=== PATIENT | male | born 1985 | race Caucasian/White ===

== ENCOUNTER 2022-10-12 05:13 | Inpatient (IN) | payer OTHER ==
[~2022-10-12] VITALS: Ht 180.3 cm; Wt 87.5 kg
[2022-10-12] MEDS ORDERED: LORazepam 2 MG TABLET PO PRN (08:15)
[2022-10-12] MEDS ORDERED: HALOPERIDOL 5 MG TABLET PO PRN (08:15)
[2022-10-12 10:13] VITALS: BP 131/78
[2022-10-12] MEDS: NICOTINE 21 MG/24 HOUR PATCH TD SCH (10:18)
[2022-10-12] MEDS ORDERED: INFLUENZA VIRUS VACCINE QVS 2022-23 (6MO+)/PF 60 MCG/0.5 ML SYRINGE IM. ONE (11:15)
[2022-10-12] MEDS: METOPROLOL TARTRATE 50 MG TABLET PO SCH (16:18)
[2022-10-12 20:24] VITALS: BP 128/74
[2022-10-12] MEDS: ZOLPIDEM TARTRATE 10 MG TABLET PO PRN (22:02)
[2022-10-13] MEDS ORDERED: OMEPRAZOLE 20 MG CAPSULE PO PRN (05:45)
[2022-10-13] MEDS ORDERED: BENZOCAINE/MENTHOL LOZENGE PO PRN (05:45)
[2022-10-13] MEDS ORDERED: MAG HYDROX/AL HYDROX/SIMETH ES 30 ML SUSPENSION UDCUP PO PRN (05:45)
[2022-10-13] MEDS ORDERED: ONDANSETRON HCL 4 MG TABLET PO PRN (05:45)
[2022-10-13] MEDS ORDERED: CloNIDine HCL 0.1 MG TABLET PO PRN (05:45)
[2022-10-13] MEDS ORDERED: DOCUSATE SODIUM 100 MG CAPSULE PO PRN (05:45)
[2022-10-13] MEDS ORDERED: ACETAMINOPHEN 325 MG TABLET PO PRN (05:45)
[2022-10-13] MEDS ORDERED: BACITRACIN 28 GM OINTMENT TP PRN (05:45)
[2022-10-13] MEDS ORDERED: LOPERAMIDE HCL 2 MG CAPSULE PO PRN (05:45)
[2022-10-13] MEDS ORDERED: ALBUTEROL SULFATE HFA 90 MCG/PUFF 8 GM INHALER IH PRN (05:45)
[2022-10-13] MEDS ORDERED: MAGNESIUM HYDROXIDE SUSPENSION 30 ML UDCUP PO PRN (05:45)
[2022-10-13] MEDS ORDERED: PETROLATUM,WHITE 28 GM JELLY TP PRN (05:45)
[2022-10-13 07:13] LABS: BASOPHILS % (AUTO) 0.6 % (0.0-2.0); EOSINOPHILS % (AUTO) 2.4 % (1.0-6.0); HEMATOCRIT 49.6 % (41-53); HEMOGLOBIN 16.5 g/dL (13.5-17.5); LYMPHOCYTES # (AUTO) 4.1 K/uL (1.0-4.8); LYMPHOCYTES % (AUTO) 34.9 % (22.0-44.0); MEAN CORPUSCULAR HEMOGLOBIN 28.7 pg (26.0-34.0); MEAN CORPUSCULAR HGB CONC 33.2 G/dL (31.0-37.0); MEAN CORPUSCULAR VOLUME 87 fL (80-100); MONOCYTES # (AUTO) 0.8 K/uL (0.1-1.0); MONOCYTES % (AUTO) 6.7 % (2.0-9.0); NEUTROPHILS # (AUTO) 6.5 K/uL (1.8-7.7); NEUTROPHILS % (AUTO) 55.4 % (40.0-70.0); PLATELET COUNT (AUTO) 312 K/uL (150-450); RED BLOOD CELL COUNT(AUTO) 5.73 MIL/uL (4.50-5.90); RED CELL DISTRIBUTION WIDTH 13.3 % (11.5-14.5)
[2022-10-13 07:22] LABS: HEMOGLOBIN A1C 5.1 % (3.8-5.6)
[2022-10-13 08:02] LABS: ALANINE AMINOTRANSFERASE 32 U/L (12-78); ALBUMIN 4.3 g/dL (3.4-5.0); ALKALINE PHOSPHATASE 88 U/L (46-116); ANION GAP 3 mmol/L (8-16); ASPARTATE AMINOTRANSFERASE 15 U/L (15-37); BILIRUBIN,TOTAL 0.3 mg/dL (0.1-1.0); CALCIUM, TOTAL 9.7 mg/dL (8.8-10.5); CARBON DIOXIDE 33 mmol/L (22-29); CHLORIDE 105 mmol/L (98-107); CHOL/HDL RATIO 5.7 (4.2-7.3); CHOLESTEROL 217 mg/dL (131-200); FREE T4 (FREE THYROXINE) 0.89 ng/dL (0.76-1.46); GLOMERULAR FILTR. RATE CALC > 60 mL/min (>60); GLUCOSE,RANDOM 86 mg/dL (70-110); HDL CHOLESTEROL 38 mg/dL (40-60); LDL CHOL (CALC.) 157 mg/dL (0-130); POTASSIUM 4.2 mmol/L (3.5-5.1); SODIUM SERUM 141 mmol/L (136-145); THYROID STIMULATING HORMONE 2.24 uIU/mL (0.36-3.74); TOTAL PROTEIN, SERUM 7.6 g/dL (6.4-8.2); TRIGLYCERIDES 109 mg/dL (15-150); UREA NITROGEN, BLOOD 17 mg/dL (7-18)
[2022-10-13] MEDS: BuPROPion HCL 75 MG TABLET PO SCH (08:39)
[2022-10-13] MEDS: ARIPiprazole 5 MG TABLET PO SCH (08:39)
[2022-10-13] MEDS: NICOTINE 21 MG/24 HOUR PATCH TD SCH (08:39)
[2022-10-13] MEDS: METOPROLOL TARTRATE 50 MG TABLET PO SCH ×2 (08:40→16:18)
[2022-10-13] MEDS: GABAPENTIN 100 MG CAPSULE PO SCH ×3 (08:40→16:18)
[2022-10-13 09:32] VITALS: BP 130/80
[2022-10-13] MEDS: ZOLPIDEM TARTRATE 10 MG TABLET PO PRN (20:25)
[2022-10-13 20:57] VITALS: BP 129/88
[2022-10-14 08:43] VITALS: BP 111/61
[2022-10-14] MEDS: ARIPiprazole 5 MG TABLET PO SCH (08:55)
[2022-10-14] MEDS: METOPROLOL TARTRATE 50 MG TABLET PO SCH ×2 (08:55→16:58)
[2022-10-14] MEDS: GABAPENTIN 100 MG CAPSULE PO SCH ×3 (08:55→16:58)
[2022-10-14] MEDS: BuPROPion HCL 75 MG TABLET PO SCH (08:56)
[2022-10-14] MEDS: NICOTINE 21 MG/24 HOUR PATCH TD SCH (09:33)
[2022-10-14] MEDS: ZOLPIDEM TARTRATE 10 MG TABLET PO PRN (20:20)
[2022-10-14 20:59] VITALS: BP 128/77
[2022-10-15] MEDS: METOPROLOL TARTRATE 50 MG TABLET PO SCH ×2 (08:10→16:12)
[2022-10-15] MEDS: ARIPiprazole 5 MG TABLET PO SCH (08:11)
[2022-10-15] MEDS: GABAPENTIN 100 MG CAPSULE PO SCH ×3 (08:11→16:12)
[2022-10-15] MEDS: NICOTINE 21 MG/24 HOUR PATCH TD SCH (08:11)
[2022-10-15] MEDS: BuPROPion HCL 75 MG TABLET PO SCH (08:11)
[2022-10-15] MEDS: ZOLPIDEM TARTRATE 10 MG TABLET PO PRN (21:14)
[2022-10-15 22:03] VITALS: BP 120/71
[2022-10-16] MEDS: METOPROLOL TARTRATE 50 MG TABLET PO SCH ×2 (08:34→16:38)
[2022-10-16] MEDS: NICOTINE 21 MG/24 HOUR PATCH TD SCH (08:34)
[2022-10-16] MEDS: BuPROPion HCL 75 MG TABLET PO SCH (08:34)
[2022-10-16] MEDS: GABAPENTIN 100 MG CAPSULE PO SCH ×3 (08:34→16:38)
[2022-10-16] MEDS: ARIPiprazole 5 MG TABLET PO SCH (08:34)
[2022-10-16 09:18] VITALS: BP 128/79
[2022-10-16 20:34] VITALS: BP 123/76
[2022-10-16] MEDS: ZOLPIDEM TARTRATE 10 MG TABLET PO PRN (20:36)
[2022-10-17 08:23] VITALS: BP 112/70
[2022-10-17] MEDS: ARIPiprazole 5 MG TABLET PO SCH (08:49)
[2022-10-17] MEDS: BuPROPion HCL 75 MG TABLET PO SCH (08:49)
[2022-10-17] MEDS: GABAPENTIN 100 MG CAPSULE PO SCH ×3 (08:49→16:15)
[2022-10-17] MEDS: NICOTINE 21 MG/24 HOUR PATCH TD SCH (08:50)
[2022-10-17] MEDS: METOPROLOL TARTRATE 50 MG TABLET PO SCH ×2 (08:50→16:15)
[2022-10-17] MEDS ORDERED: BUPR-344 PO ×2 (11:08→13:50)
[2022-10-17] MEDS ORDERED: ARIP5TAB37 PO ×2 (11:08→13:50)
[2022-10-17] MEDS ORDERED: METO50 PO (11:08)
[2022-10-17] MEDS ORDERED: GABA-1216 PO ×2 (11:08→13:50)
[2022-10-17 20:16] VITALS: BP 122/70
[2022-10-17] MEDS: ZOLPIDEM TARTRATE 10 MG TABLET PO PRN (20:38)
[2022-10-18] MEDS: ARIPiprazole 5 MG TABLET PO SCH (08:16)
[2022-10-18] MEDS: NICOTINE 21 MG/24 HOUR PATCH TD SCH (08:16)
[2022-10-18] MEDS: GABAPENTIN 100 MG CAPSULE PO SCH ×2 (08:17→13:35)
[2022-10-18] MEDS: METOPROLOL TARTRATE 50 MG TABLET PO SCH (08:17)
[2022-10-18] MEDS: BuPROPion HCL 75 MG TABLET PO SCH (08:17)
[2022-10-18 09:07] VITALS: BP 135/81
== END 2022-10-18 14:40 | disposition home or self-care (01) | DRG 885 ==
LOC: B3A 09:07
PROVIDERS: ADMIT Psychiatry & Neurology Psychiatry; ATTEND Psychiatry & Neurology Psychiatry
DX: F31.9 Bipolar disorder, unspecified (principal); R45.851 Suicidal ideations; I10 Essential (primary) hypertension; F41.9 Anxiety disorder, unspecified; Z20.822 Contact with and (suspected) exposure to COVID-19; K59.00 Constipation, unspecified; G47.00 Insomnia, unspecified; Z79.899 Other long term (current) drug therapy; Z56.0 Unemployment, unspecified
CPT/HCPCS: 80053; 80061; 83036; 84436; 84439; 84443; 85025